=== PATIENT | male | born 1990 | race Caucasian/White ===

== ENCOUNTER 2016-12-28 11:37 | Emergency (ER) | payer MEDICAID ==
[~2016-12-28] VITALS: Ht 167.6 cm; Wt 62.0 kg
[2016-12-28 11:48] VITALS: Ht 167.6 cm; Wt 62.0 kg
[2016-12-28] MEDS ORDERED: ONDANSETRON (ODT) 4 MG TAB ODT STA (12:29)
[2016-12-28] MEDS ORDERED: LIDOCAINE/MYLANTA 40 ML BTL PO ONE (12:30)
[2016-12-28] MEDS ORDERED: FAMO-18 PO (13:32)
[2016-12-28] MEDS ORDERED: ACET500C5 PO (13:32)
--- NOTE | 2016-12-28 13:41 | ERD ---
ER Documentation Chief Complaint Date/Time DATE: 12/28/16 TIME: 13:35 Chief Complaint pt bib family with c/o "muscle pain " x 1 month HPI Patient is 26-year-old male who presents to the emergency department with "muscle pain 1 month. Patient states that he is having pain in his hands, face , and epigastric region. Patient describes the pain as epigastric region to be burning in nature. Patient describes his facial pain and hand pain to be throbbing. Patient does report some nausea however he denies any vomiting. Patient denies any fevers, chills, right upper quadrant pain, lower abdominal pain, pain with urination, stool changes. Patient denied any chest pain, shortness of breath, diaphoresis, left upper extremity pain. Patient denies any sick contacts. Patient denies any recent travel. Patient does report eating fried foods and drinking alcohol. Patient denies any NSAID use. She denies taking any pain medication for his "muscle pain". Patient does report working in the construction industry. ROS All systems reviewed and are negative except as per history of present illness. Medications Home Meds Active Scripts Famotidine* (Pepcid*) 20 Mg Tablet, 20 MG PO BID for 30 Days, TAB Prov:STEPHANIE CASTELLON PA-C 12/28/16 Acetaminophen* (Tylophen*) 500 Mg Capsule, 2 CAP PO Q8H Y for PAIN AND OR ELEVATED TEMP, #20 CAP Prov:STEPHANIE CASTELLON PA-C 12/28/16 Allergies Allergies: Coded Allergies: No Known Allergy (Unverified , 12/28/16) PMhx/Soc Medical and Surgical Hx: pt denies Medical Hx, pt denies Surgical Hx Hx Alcohol Use: Yes Hx Substance Use: No Hx Tobacco Use: No Smoking Status: Never smoker FmHx Family History: No diabetes Physical Exam Vitals Vital Signs Date Time Temp Pulse Resp B/P Pulse Ox O2 Delivery O2 Flow Rate FiO2 12/28/16 11:48 98.3 68 18 124/66 98 Physical Exam GENERAL: Well-developed, well-nourished male. Appears in no acute distress. HEAD: Normocephalic, atraumatic. EYES: Pupils are equally reactive bilaterally. EOMs grossly intact. No conjunctival erythema. ENT: Moist mucous membranes. No uvula deviation. No kissing tonsils. NECK: Supple. No meningismus. Normal range of motion of the neck. LUNG: Clear to auscultation bilaterally. No rhonchi, wheezing, rales or coarse breath sounds. HEART: Regular rate and rhythm. No murmurs, rubs or gallops. ABDOMEN: No scars, ecchymosis or rashes noted. Soft and nondistended. Minimally tender in the epigastric region. positive bowel sounds in all four quadrants. No rebound tenderness, no guarding. (-) McBurney's point tenderness. No CVA tenderness. BACK: No midline tenderness. Nontender to palpation of paraspinal muscles bilaterally. EXTREMITIES: Equal pulses bilaterally. No peripheral clubbing, cyanosis or edema. No unilateral leg swelling. NEUROLOGIC: Alert and oriented. Moving all four extremities without any difficulty. Normal speech. Steady gait. SKIN: Normal color. Warm and dry. No rashes or lesions. Results 24 hrs Current Medications Medications (Trade) Dose Ordered Sig/Magda Route PRN Reason Start Time Stop Time Status Last Admin Dose Admin Miscellaneous Medication (Gi Cocktail (2)) 40 ml ONCE ONCE PO 12/28/16 12:30 12/28/16 12:31 DC 12/28/16 12:34 Ondansetron HCl (Zofran Odt) 4 mg ONCE STAT ODT 12/28/16 12:29 12/28/16 12:30 DC 12/28/16 12:34 Procedures/MDM ED COURSE: The patient was stable throughout ED course. I kept the patient and/or family informed of laboratory and diagnostic imaging results throughout the ED course. MEDICATIONS GIVEN: GI cocktail, Zofran Patient tolerated medication well with no adverse reactions. Patient reported improvement in pain. MEDICAL DECISION MAKING: This is a 26-year-old male who presents with generalized body aches and epigastric pain 1 month. Patient also reported nausea however he denied any vomiting. Vital signs were reviewed. Patient is afebrile. Abdominal exam revealed minimal tenderness to palpation in the epigastric region. Patient was given a GI cocktail in the emergency department. Patient reported improvement in symptoms upon reexamination. At this time, patient's presentation is most consistent with epigastric pain and generalized body aches. I have a much lower clinical concern for acute coronary syndrome, AAA, mesenteric ischemia, lower lobe pneumonia, DKA, bowel perforation, bowel obstruction, cholecystitis, pancreatitis, splenic rupture, diverticulitis, UTI, pyelonephritis, appendicitis, constipation, testicular torsion, epididymitis. Unable to rule out any rheumatological disorders at this time. Patient was advised that he will need to follow-up with his primary care physician for further testing including inflammatory markers. Patient should also follow-up with a GI specialist for his epigastric pain. Patient was advised to avoid spicy foods, fatty foods, citrus foods, NSAIDs and alcohol. PRESCRIPTIONS: Pepcid, Tylenol DISCHARGE: At this time, patient is stable for discharge and outpatient management. I have instructed the patient to follow-up with his/her primary care physician in 1-2 days. I have instructed the patient to promptly return to the ER at any time for any new or worsening symptoms including increased pain, nausea, vomiting, diarrhea, fever, weakness or LOC. The patient and/or family expressed understanding of and agreement with this plan. All questions were answered. Home care instructions were provided. Departure Diagnosis: Primary Impression: Epigastric discomfort Additional Impression: Body aches Condition: Stable Patient Instructions: Epigastric Pain (Uncertain Cause) Referrals: [facility] YOU HAVE RECEIVED A MEDICAL SCREENING EXAM AND THE RESULTS INDICATE THAT YOU DO NOT HAVE A CONDITION THAT REQUIRES URGENT TREATMENT IN THE EMERGENCY DEPARTMENT. FURTHER EVALUATION AND TREATMENT OF YOUR CONDITION CAN WAIT UNTIL YOU ARE SEEN IN YOUR DOCTORS OFFICE WITHIN THE NEXT 1-2 DAYS. IT IS YOUR RESPONSIBILITY TO MAKE AN APPOINTMENT FOR FOLOW-UP CARE. IF YOU HAVE A PRIMARY DOCTOR --you should call your primary doctor and schedule an appointment IF YOU DO NOT HAVE A PRIMARY DOCTOR YOU CAN CALL OUR PHYSICIAN REFERRAL HOTLINE AT IF YOU CAN NOT AFFORD TO SEE A PHYSICIAN YOU CAN CHOSE FROM THE FOLLOWING [facility] [address] [facility] [address] [facility] [facility] [address] [facility] [address] [facility] [address] [facility] [facility]. [address] [facility] [facility] YOU HAVE RECEIVED A MEDICAL SCREENING EXAM AND THE RESULTS INDICATE THAT YOU DO NOT HAVE A CONDITION THAT REQUIRES URGENT TREATMENT IN THE EMERGENCY DEPARTMENT. FURTHER EVALUATION AND TREATMENT OF YOUR CONDITION CAN WAIT UNTIL YOU ARE SEEN IN YOUR DOCTORS OFFICE WITHIN THE NEXT 1-2 DAYS. IT IS YOUR RESPONSIBILITY TO MAKE AN APPOINTMENT FOR FOLOW-UP CARE. IF YOU HAVE A PRIMARY DOCTOR --you should call your primary doctor and schedule and appointment IF YOU DO NOT HAVE A PRIMARY DOCTOR YOU CAN CALL OUR PHYSICIAN REFERRAL HOTLINE AT . IF YOU CAN NOT AFFORD TO SEE A PHYSICIAN YOU CAN CHOSE FROM THE FOLLOWING [facility] INSTITUTIONS: [facility] [address] [place] [address] [facility] [address] [place] [address] [facility] [address] [place] [address] Additional Instructions: Call your primary care doctor TOMORROW for an appointment during the next 1-2 days.See the doctor sooner or return here if your condition worsens before your appointment time. Patient will need to follow-up with his primary care physician for further testing of his symptoms. Patient may need some rheumatological testing including ESR CRP and outpatient basis to rule out any autoimmune conditions. At this time unable to rule out any autoimmune causes of the patient's pain. Patient advised to avoid spicy foods, fatty foods, citrus foods, alcohol, NSAIDs. Patient should follow-up with a GI specialist for further management of his epigastric pain. STEPHANIE CASTELLON PA-C Dec 28, 2016 13:41 NSAIDs. Patient should follow-up with a GI specialist for further management of his epigastric pain. STEPHANIE CASTELLON PA-C Dec 28, 2016 13:41
== END 2016-12-28 13:53 | disposition home or self-care (01) ==
LOC: FTE 11:37
DX: R10.13 Epigastric pain (principal); R11.0 Nausea
CPT/HCPCS: Z7502; Z7610; 99283

== ENCOUNTER 2018-08-02 18:22 | Emergency (ER) | END 2018-08-02 20:35 | disposition home or self-care (01) ==